=== PATIENT | male | born 1940 ===

== ENCOUNTER 2022-03-30 03:02 | Emergency (ER) | payer OTHER ==
[~2022-03-30] VITALS: Ht 162.6 cm; Wt 52.6 kg
[~2022-03-30 03:02] MED LIST: ASA325 M1; CARVEDILOL12.5 MG; COZAAR50 MG; PLAVIX75 MG; [UNRECOGNIZED DRUG - OTHER]
[2022-03-30] MEDS ORDERED: CRESTOR10 MG PO (03:40)
[2022-03-30] MEDS ORDERED: ELIQUIS2.5 MG PO (03:40)
[2022-03-30] MEDS ORDERED: SYNTHROID75 MCG PO (03:41)
[2022-03-30] MEDS ORDERED: ZETIA10 MG PO (03:41)
[2022-03-30] MEDS ORDERED: TOPROL XL100 M1 PO (03:42)
[2022-03-30] MEDS ORDERED: LASIX20 MG PO (03:42)
[2022-03-30] MEDS ORDERED: CAROSPIR25 MG/5 ML PO (03:42)
[2022-03-30] MEDS ORDERED: PEPCID AC20 MG PO (07:02)
[2022-03-30] MEDS ORDERED: LEVSIN0.125 MG PO (07:02)
== END 2022-03-30 07:13 | disposition home or self-care (01) ==
LOC: ER 03:02
DX: R10.31 Right lower quadrant pain (principal); Z95.0 Presence of cardiac pacemaker; E03.9 Hypothyroidism, unspecified; Z85.46 Personal history of malignant neoplasm of prostate; Z85.51 Personal history of malignant neoplasm of bladder; Z91.018 Allergy to other foods

== ENCOUNTER 2023-01-20 10:28 | Inpatient (IN) | payer OTHER ==
[~2023-01-20] VITALS: Ht 152.4 cm; Wt 63.5 kg
[~2023-01-20 10:28] MED LIST changes: +CAROSPIR25 MG/5 ML PO; +CRESTOR10 MG PO; +ELIQUIS2.5 MG PO; +LASIX20 MG PO; +LEVSIN0.125 MG PO; +PEPCID AC20 MG PO; +SYNTHROID75 MCG PO; +TOPROL XL100 M1 PO; +ZETIA10 MG PO
[2023-01-20] MEDS ORDERED: MAGNESIUM OXID400 M1 (10:47)
[2023-01-20] MEDS ORDERED: LOSARTAN POTAS100 MG (10:47)
[2023-01-20] MEDS ORDERED: LEVOTHYROXINE50 MCG (10:47)
[2023-01-20] MEDS ORDERED: FARXIGA5 MG (10:47)
[2023-01-20] MEDS ORDERED: GABAPENTIN300 M2 (10:48)
[2023-01-20] MEDS ORDERED: ROSUVASTATIN CA10 MG (10:48)
[2023-01-20] MEDS ORDERED: SODIUM BICARBO650 MG (10:49)
[2023-01-20] MEDS ORDERED: SPIRONOLACTONE25 MG (10:49)
[2023-01-20] MEDS ORDERED: VASOFLEX D1 CA1 EACH (10:49)
[2023-01-20] MEDS ORDERED: FUROSEMIDE20 MG (10:49)
--- NOTE | 2023-01-20 11:02 | NUR ---
PTE ALERTA Y ORIENTADO POR MARCY ESFERAS CON BUEN PATRON RESPIRATORIO, REFIERE QUE SIENTE DEBILIDAD Y DOLOR EN PIERNAS. SE REALIZA EKG Y SE PRESENTA A MEDICO DE TURNO
--- NOTE | 2023-01-20 11:51 | NUR ---
PTE MASCULINO DE 82 YRS EVALUADO POR EL REGAN SAEED QUIE ORDENA TRATAMIENTO LA CUAL SE EJECUTA. SE MANTIENE EN ESPERA DE ESTUDIONDE DOPLES ARTERIAL; Y VENOSO.
--- NOTE | 2023-01-20 15:15 | NUR ---
PTE ALERTA,ESTABLE Y ORIENTADO.SE EDUCA SOBRE EL TRATAMIENTO QUE RECIBIRA EN EL HOSPITAL Y DONY REFIERE ENTENDER
--- NOTE | 2023-01-20 22:09 | NUR ---
PTE SE RECIBE DE UNIDAD DE OBSERVACION CON DISTRESS RESPIRATORIO, PTE SE COLOCA EN BENIGNO #17 DE UNIDAD DE CHEST PAIN. PTE SE CONECTA A MONITOR CARDIACO TRISH OXIMETRIA CONTINUA. SE COLOCA H/L A PTE UTILIZANDO MEDIDAS ASEPTICAS. SE ADMINISTRAN MEDICAMENTOS BETHANY ORDEN MEDICA. SE NOTIFICA A PERSONAL DE RT SOBRE TERAPIAS PENDIENTES. SE COLOCA SLAUGHTER A PTE UTILIZANDO MEDIDAS ESTERILES. SE NOTIFICA A PERSONAL DE ANTESTESIA PARA ENTUBACION PREVENTIVA. SE COLOCA TUBO 7.0 ENDOTRAQUEAL CONECTADO A VT MECANICO CON LOS SIGUIENTES PARAMETROS:VT 480, FO2 100, PEEP 5, RR 18/MIN, MODO AC. SE COLOCAN RESTRICCIONES A PTE EN EXTREMIDADES SUPERIORES. PTE SE CONTINUA MONITORIANDO POR CAMBIOS.
[2023-01-31] MEDS ORDERED: LIPITOR40 MG PO (17:58)
[2023-01-31] MEDS ORDERED: PEPCID AC20 MG PO (17:58)
[2023-01-31] MEDS ORDERED: ADULT ASPIRIN81 MG PO (17:58)
[2023-01-31] MEDS ORDERED: CARVEDILOL3.125 MG PO (17:58)
[2023-01-31] MEDS ORDERED: VANCOMYCIN HCL125 MG PO (17:58)
[2023-01-31] MEDS ORDERED: LEVOTHYROXINE50 MCG PO (17:58)
[2023-01-31] MEDS ORDERED: CLOPIDOGREL BIS75 MG PO (17:58)
[2023-01-31] MEDS ORDERED: FUROSEMIDE20 MG PO (17:58)
[2023-01-31] MEDS ORDERED: GABAPENTIN300 MG PO (17:58)
== END 2023-01-31 21:09 | disposition home or self-care (01) | DRG 208 ==
LOC: ER 10:28 → ICU-2 22:09 → ICU 01-21 04:13 → MEDJ 01-28 19:37
PROVIDERS: ADMIT Internal Medicine; ATTEND Internal Medicine
PROC: 5A1945Z Respiratory Ventilation, 24-96 Consecutive Hours (ICD-10-PCS; principal; 2023-01-20)
PROC: 0BH17EZ Insertion of Endotracheal Airway into Trachea, Via Natural or Artificial Opening (ICD-10-PCS; 2023-01-20)
PROC: B54DZZZ Ultrasonography of Bilateral Lower Extremity Veins (ICD-10-PCS; 2023-01-20)
PROC: BB24ZZZ Computerized Tomography (CT Scan) of Bilateral Lungs (ICD-10-PCS; 2023-01-20)
PROC: B246ZZZ Ultrasonography of Right and Left Heart (ICD-10-PCS; 2023-01-20)
PROC: 4A12X4Z Monitoring of Cardiac Electrical Activity, External Approach (ICD-10-PCS; 2023-01-20)
PROC: B44HZZZ Ultrasonography of Bilateral Lower Extremity Arteries (ICD-10-PCS; 2023-01-20)
PROC: 02HV33Z Insertion of Infusion Device into Superior Vena Cava, Percutaneous Approach (ICD-10-PCS; 2023-01-20)
PROC: 0DH67UZ Insertion of Feeding Device into Stomach, Via Natural or Artificial Opening (ICD-10-PCS; 2023-01-20)
PROC: 30243N1 Transfusion of Nonautologous Red Blood Cells into Central Vein, Percutaneous Approach (ICD-10-PCS; 2023-01-21)
PROC: 3E0G76Z Introduction of Nutritional Substance into Upper GI, Via Natural or Artificial Opening (ICD-10-PCS; 2023-01-21)
DX: J96.01 Acute respiratory failure with hypoxia (principal); I21.4 Non-ST elevation (NSTEMI) myocardial infarction; I50.23 Acute on chronic systolic (congestive) heart failure; A41.89 Other specified sepsis; A04.72 Enterocolitis due to Clostridium difficile, not specified as recurrent; I24.9 Acute ischemic heart disease, unspecified; N17.8 Other acute kidney failure; I13.0 Hypertensive heart and chronic kidney disease with heart failure and stage 1 through stage 4 chronic kidney disease, or unspecified chronic kidney disease; I48.20 Chronic atrial fibrillation, unspecified; E11.65 Type 2 diabetes mellitus with hyperglycemia; D75.838 Other thrombocytosis; I25.10 Atherosclerotic heart disease of native coronary artery without angina pectoris; E11.22 Type 2 diabetes mellitus with diabetic chronic kidney disease; N18.9 Chronic kidney disease, unspecified; I73.89 Other specified peripheral vascular diseases; D64.89 Other specified anemias; E03.9 Hypothyroidism, unspecified; Z95.1 Presence of aortocoronary bypass graft; Z79.01 Long term (current) use of anticoagulants; Z79.4 Long term (current) use of insulin; Z20.822 Contact with and (suspected) exposure to COVID-19

== ENCOUNTER 2023-02-01 16:28 | Emergency (ER) | payer OTHER ==
[~2023-02-01] VITALS: Ht 165.1 cm; Wt 54.4 kg
[~2023-02-01 16:28] MED LIST changes: +ADULT ASPIRIN81 MG PO; +CARVEDILOL3.125 MG PO; +CLOPIDOGREL BIS75 MG PO; +FARXIGA5 MG; +FUROSEMIDE20 MG; +FUROSEMIDE20 MG PO; +GABAPENTIN300 M2; +GABAPENTIN300 MG PO; +LEVOTHYROXINE50 MCG; +LEVOTHYROXINE50 MCG PO; +LIPITOR40 MG PO; +LOSARTAN POTAS100 MG; +MAGNESIUM OXID400 M1; +ROSUVASTATIN CA10 MG; +SODIUM BICARBO650 MG; +SPIRONOLACTONE25 MG; +VANCOMYCIN HCL125 MG PO; +VASOFLEX D1 CA1 EACH
== END 2023-02-01 22:05 | disposition home or self-care (01) ==
LOC: ER 16:28
DX: I50.9 Heart failure, unspecified (principal); E11.9 Type 2 diabetes mellitus without complications; E03.9 Hypothyroidism, unspecified; E78.00 Pure hypercholesterolemia, unspecified; I49.8 Other specified cardiac arrhythmias; M79.7 Fibromyalgia; Z20.822 Contact with and (suspected) exposure to COVID-19; J90 Pleural effusion, not elsewhere classified